=== PATIENT | male | born 1990 | race Caucasian/White ===

== ENCOUNTER 2020-07-23 13:39 | Emergency (ER) | payer SELFPAY ==
[~2020-07-23] VITALS: Ht 180.3 cm; Wt 83.5 kg
[2020-07-23] MEDS ORDERED: DEXAMETHASONE SOD PHOS 10 MG/1 ML VIAL IM ONE (14:15)
[2020-07-23] MEDS ORDERED: IBUPROFEN 200 MG TAB PO ONE (14:15)
[2020-07-23] MEDS ORDERED: ONDANSETRON HCL 4 MG ORAL DISINTEGRATING TAB PO ONE (14:15)
[2020-07-23] MEDS ORDERED: ACETAMINOPHEN 325 MG TAB PO ONE (14:15)
[2020-07-23] MEDS ORDERED: PREDNISONE20 MG PO (14:16)
[2020-07-23] MEDS ORDERED: IBUPROFEN IB200 MG PO (14:16)
[2020-07-23] MEDS ORDERED: ACETAMINOPHEN500 MG PO (14:16)
[2020-07-23] MEDS ORDERED: ZANAFLEX4 MG PO (14:16)
[2020-07-23] MEDS ORDERED: ONDANSETRON HCL 4 MG ORAL DISINTEGRATING TAB ONE (14:24)
[2020-07-23] MEDS ORDERED: IBUPROFEN 200 MG TAB ONE (14:25)
[2020-07-23] MEDS ORDERED: ACETAMINOPHEN 325 MG TAB ONE (14:25)
[2020-07-23] MEDS ORDERED: DEXAMETHASONE SOD PHOS INJ 4 MG/ML VIAL ONE (14:25)
== END 2020-07-23 15:38 | disposition home or self-care (01) ==
LOC: FSED 14:10
DX: M54.5 Low back pain (principal); F17.210 Nicotine dependence, cigarettes, uncomplicated
CPT/HCPCS: 72131; 96372; 99283; J1100 ×2; Q0162

== ENCOUNTER 2021-01-12 08:26 | Emergency (ER) | payer SELFPAY ==
[~2021-01-12] VITALS: Ht 180.3 cm; Wt 79.4 kg
[~2021-01-12 08:26] MED LIST: ACETAMINOPHEN500 MG PO; IBUPROFEN IB200 MG PO; PREDNISONE20 MG PO; ZANAFLEX4 MG PO
[2021-01-12] MEDS ORDERED: ZITHROMAX250 MG PO (08:58)
[2021-01-12] MEDS ORDERED: TESSALON PERLE100 MG PO (08:58)
== END 2021-01-12 09:09 | disposition home or self-care (01) ==
LOC: FSED 08:38
DX: R50.9 Fever, unspecified (principal); J02.0 Streptococcal pharyngitis; J20.9 Acute bronchitis, unspecified; R05.9 Cough, unspecified; F17.210 Nicotine dependence, cigarettes, uncomplicated
CPT/HCPCS: 83518; 87400; 99282